=== PATIENT | male | born 1945 | race African-American/Black ===

== ENCOUNTER 2022-01-26 11:42 | Inpatient (IN) | payer MEDICARE, MEDICAID ==
[~2022-01-26] VITALS: Ht 172.7 cm; Wt 67.6 kg
[2022-01-26] MEDS ORDERED: METHYLPREDNISOLONE SOD SUCC 125 MG/2 ML VIAL IV STA (12:12)
[2022-01-26] MEDS ORDERED: ALBUTEROL (0.083%) 2.5MG/3ML NEB HHN STA (12:12)
[2022-01-26] MEDS ORDERED: IPRATROPIUM BROMIDE (0.02%) 0.5MG/2.5ML NEB HHN STA (12:12)
[2022-01-26 13:05] LABS: BASOPHILS % 0.7 % (0.0-2.0); EOSINOPHILS % 0.4 % (0.0-5.0); HEMATOCRIT. 30.9 % (42.0-52.0); HEMOGLOBIN. 9.5 g/dL (14.0-18.0); LYMPHOCYTES % 14.9 % (20.0-50.0); MEAN CORPUSCULAR HEMOGLOBIN 23.8 pg (28.0-32.0); MEAN CORPUSCULAR VOLUME 77.2 fL (80.0-94.0); MEAN PLATELET VOLUME 8.2 fl (7.4-10.4); MONOCYTES % 11.7 % (2.0-8.0); NEUTROPHILS % 72.3 % (40.0-76.0); PLATELET 181 x1000/uL (130-400); RED CELL DISTRIBUTION WIDTH 19.8 % (11.6-14.6)
[2022-01-26 13:10] LABS: CHLORIDE 105 mEq/L (98-107)
[2022-01-26] MEDS ORDERED: FUROSEMIDE 40MG/4ML VIAL IVP ONE (14:15)
[2022-01-26 18:20] VITALS: BP 128/71
[2022-01-26] MEDS ORDERED: ACETAMINOPHEN 325MG TABLET PO PRN (18:30)
[2022-01-26] MEDS ORDERED: ONDANSETRON HCL 4MG/2ML INJ IV PRN (18:30)
[2022-01-26] MEDS ORDERED: ENOXAPARIN 80MG/0.8ML SYR SUBCUT NR (18:31)
[2022-01-26] MEDS ORDERED: LACT10SO3 PO (19:27)
[2022-01-26] MEDS ORDERED: PANT40TA51 PO (19:27)
[2022-01-26] MEDS ORDERED: ATOR10TA69 PO (19:27)
[2022-01-26] MEDS ORDERED: FURO40TA5 PO (19:27)
[2022-01-26 20:00] VITALS: BP 136/73
[2022-01-26] MEDS: IPRATROPIUM/ALBUTEROL 0.5-3(2.5)MG/3ML NEB HHN SCH (20:25)
[2022-01-26 22:23] VITALS: BP 136/73
[2022-01-27 00:05] VITALS: BP 110/60
[2022-01-27] MEDS: IPRATROPIUM/ALBUTEROL 0.5-3(2.5)MG/3ML NEB HHN SCH ×6 (00:30→20:39)
[2022-01-27 04:00] VITALS: BP 109/59
[2022-01-27 06:08] LABS: HEMOGLOBIN. 9.2 g/dL (14.0-18.0); MEAN CORPUSCULAR HEMOGLOBIN 24.3 pg (28.0-32.0); MEAN CORPUSCULAR VOLUME 76.6 fL (80.0-94.0); MEAN PLATELET VOLUME 8.8 fl (7.4-10.4); PLATELET 184 x1000/uL (130-400); RED BLOOD CELL COUNT 3.78 mill/uL (4.7-6.1); RED CELL DISTRIBUTION WIDTH 19.5 % (11.6-14.6)
[2022-01-27 06:12] LABS: INR 1.4; PROTHROMBIN TIME 15.1 sec (9.6-11.0)
[2022-01-27 08:00] VITALS: BP 114/60
[2022-01-27] MEDS: ENOXAPARIN 80MG/0.8ML SYR SUBCUT SCH ×2 (09:13→20:37)
[2022-01-27] MEDS: FUROSEMIDE 40MG/4ML VIAL IVP SCH ×2 (09:13→17:00)
[2022-01-27 12:00] VITALS: BP 113/72
[2022-01-27 12:04] LABS: PLATELET ESTIMATE NORMAL
[2022-01-27] MEDS ORDERED: CEFTRIAXONE 1 G PREMIX 50 ML IV SCH (12:45)
[2022-01-27 14:29] LABS: BG BASE EXCESS -2.5 mmol/L (-2.0-2.0); BG CARBOXYHEMOGLOBIN 0.1 % (0.5-1.5); BG DEOXYHEMOGLOBIN 22.1 % (0.0-5.0); BG FRACTION INSPIRED OXYGEN 21; BG HCO3 ACT 24.2 mmol/L (22.0-26.0); BG METHEMOGLOBIN 0.3 % (0.0-1.5); BG OXYGEN SATURATION 77.8 % (92.0-98.5); BG OXYHEMOGLOBIN 77.5 % (94.0-97.0); BG PH 7.295 (7.350-7.450); BG PO2 45.1 mmHg (75.0-100.0); BG SAMPLE SITE RIGHT RADIAL; BG TOTAL HEMOGLOBIN 10.3 g/dL (12.0-18.0); BG VENT MODE ROOM AIR
[2022-01-27 16:00] VITALS: BP 94/52
[2022-01-27] MEDS: CEFTRIAXONE 1,000 MG in DEXTROSE 5% WATER 50 ML IV SCH (16:25)
[2022-01-27] MEDS: AZITHROMYCIN 250 MG in DEXT 5% WATER 250 ML IV SCH (16:25)
[2022-01-27 20:00] VITALS: BP 101/59
[2022-01-28] VITALS: BP 102/61
[2022-01-28] MEDS: IPRATROPIUM/ALBUTEROL 0.5-3(2.5)MG/3ML NEB HHN SCH ×7 (00:25→23:44)
[2022-01-28 04:00] VITALS: BP 95/56
[2022-01-28 06:27] LABS: HEMATOCRIT. 31.4 % (42.0-52.0); HEMOGLOBIN. 9.8 g/dL (14.0-18.0); MEAN CORPUSCULAR HEMOGLOBIN 24.2 pg (28.0-32.0); MEAN CORPUSCULAR VOLUME 77.2 fL (80.0-94.0); PLATELET 182 x1000/uL (130-400); RED BLOOD CELL COUNT 4.07 mill/uL (4.7-6.1); RED CELL DISTRIBUTION WIDTH 19.4 % (11.6-14.6)
[2022-01-28 08:00] VITALS: BP 114/66
[2022-01-28] MEDS: FUROSEMIDE 40MG/4ML VIAL IVP SCH ×2 (10:37→21:49)
[2022-01-28] MEDS: ENOXAPARIN 80MG/0.8ML SYR SUBCUT SCH ×2 (10:38→20:47)
[2022-01-28 12:00] VITALS: BP 111/58
[2022-01-28] MEDS: LACTULOSE 20G/30ML UDC PO SCH ×2 (14:37→20:47)
[2022-01-28] MEDS: CEFTRIAXONE 1,000 MG in DEXTROSE 5% WATER 50 ML IV SCH (14:37)
[2022-01-28] MEDS: AZITHROMYCIN 250 MG in DEXT 5% WATER 250 ML IV SCH (15:33)
[2022-01-28 16:00] VITALS: BP 118/60
[2022-01-28 20:00] VITALS: BP 134/68
[2022-01-28] MEDS: POTASSIUM CHLORIDE 20MEQ TABLET SR PO SCH (21:50)
[2022-01-28 21:56] LABS: PLATELET ESTIMATE NORMAL
[2022-01-28] MEDS ORDERED: FUROSEMIDE 100MG/10ML VIAL IVP SCH ×2 (22:00)
[2022-01-28 23:05] LABS: CLARITY URINE CLEAR (CLEAR); COLOR URINE YELLOW (YELLOW); KETONES URINE NEGATIVE (NEGATIVE); LEUKOCYTE ESTERASE URINE NEGATIVE (NEGATIVE); NITRITE URINE NEGATIVE (NEGATIVE); OCCULT BLOOD URINE NEGATIVE (NEGATIVE); PH URINE 5.5 (4.5-8.0); PROTEIN URINE 2+ (NEGATIVE); SPECIFIC GRAVITY URINE 1.014 (1.005-1.030); UROBILINOGEN URINE 0.2 E.U./dL (0.2-1.0)
[2022-01-29] VITALS: BP 115/72
[2022-01-29 04:00] VITALS: BP 121/70
[2022-01-29] MEDS: IPRATROPIUM/ALBUTEROL 0.5-3(2.5)MG/3ML NEB HHN SCH ×5 (04:01→20:18)
[2022-01-29] MEDS: LACTULOSE 20G/30ML UDC PO SCH ×3 (06:25→21:48)
[2022-01-29 07:20] LABS: HEMATOCRIT. 31.5 % (42.0-52.0); MEAN CORPUSCULAR HEMOGLOBIN 24.2 pg (28.0-32.0); MEAN CORPUSCULAR VOLUME 76.2 fL (80.0-94.0); MEAN PLATELET VOLUME 8.8 fl (7.4-10.4); PLATELET 193 x1000/uL (130-400); RED BLOOD CELL COUNT 4.14 mill/uL (4.7-6.1); RED CELL DISTRIBUTION WIDTH 19.5 % (11.6-14.6)
[2022-01-29] MEDS: FUROSEMIDE 40MG/4ML VIAL IVP SCH (07:49)
[2022-01-29 08:00] VITALS: BP 112/70
[2022-01-29] MEDS: POTASSIUM CHLORIDE 20MEQ TABLET SR PO SCH (10:05)
[2022-01-29] MEDS: ENOXAPARIN 80MG/0.8ML SYR SUBCUT SCH ×2 (10:05→21:48)
[2022-01-29 12:00] VITALS: BP 118/72
[2022-01-29] MEDS: CEFTRIAXONE 1,000 MG in DEXTROSE 5% WATER 50 ML IV SCH (14:51)
[2022-01-29] MEDS: AZITHROMYCIN 250 MG in DEXT 5% WATER 250 ML IV SCH (15:40)
[2022-01-29 16:00] VITALS: BP 119/72
[2022-01-29 20:00] VITALS: BP 124/74
[2022-01-29 21:30] LABS: PLATELET ESTIMATE NORMAL
[2022-01-29 23:13] LABS: CLARITY URINE CLEAR (CLEAR); COLOR URINE YELLOW (YELLOW); KETONES URINE NEGATIVE (NEGATIVE); LEUKOCYTE ESTERASE URINE 2+ (NEGATIVE); NITRITE URINE NEGATIVE (NEGATIVE); OCCULT BLOOD URINE 3+ (NEGATIVE); PH URINE 5.5 (4.5-8.0); PROTEIN URINE 1+ (NEGATIVE); SPECIFIC GRAVITY URINE 1.015 (1.005-1.030); UROBILINOGEN URINE 0.2 E.U./dL (0.2-1.0)
[2022-01-30] VITALS (7 sets, daily range): BP systolic 106–136; BP diastolic 65–75
[2022-01-30] MEDS: IPRATROPIUM/ALBUTEROL 0.5-3(2.5)MG/3ML NEB HHN SCH ×6 (04:26→21:20)
[2022-01-30] MEDS: LACTULOSE 20G/30ML UDC PO SCH ×3 (06:21→21:13)
[2022-01-30 08:22] LABS: HEMATOCRIT. 30.9 % (42.0-52.0); HEMOGLOBIN. 9.9 g/dL (14.0-18.0); MEAN CORPUSCULAR HEMOGLOBIN 24.1 pg (28.0-32.0); MEAN CORPUSCULAR VOLUME 75.3 fL (80.0-94.0); MEAN PLATELET VOLUME 9.1 fl (7.4-10.4); PLATELET 199 x1000/uL (130-400); RED CELL DISTRIBUTION WIDTH 19.1 % (11.6-14.6)
[2022-01-30] MEDS: ENOXAPARIN 80MG/0.8ML SYR SUBCUT SCH ×3 (08:50→21:13)
[2022-01-30] MEDS: AZITHROMYCIN 250 MG TABLET PO SCH (08:50)
[2022-01-30 09:34] LABS: CHLORIDE 108 mEq/L (98-107)
[2022-01-30 19:32] LABS: PLATELET ESTIMATE NORMAL
[2022-01-31] MEDS: IPRATROPIUM/ALBUTEROL 0.5-3(2.5)MG/3ML NEB HHN SCH ×6 (00:43→21:26)
[2022-01-31 04:00] VITALS: BP 120/63
[2022-01-31] MEDS: LACTULOSE 20G/30ML UDC PO SCH ×3 (04:57→21:42)
[2022-01-31 08:00] VITALS: BP 118/65
[2022-01-31 08:23] LABS: BASOPHILS % 0.1 % (0.0-2.0); EOSINOPHILS % 3.2 % (0.0-5.0); HEMATOCRIT. 32.6 % (42.0-52.0); HEMOGLOBIN. 10.2 g/dL (14.0-18.0); LYMPHOCYTES % 8.4 % (20.0-50.0); MEAN CORPUSCULAR HEMOGLOBIN 23.9 pg (28.0-32.0); MEAN CORPUSCULAR VOLUME 76.1 fL (80.0-94.0); MEAN PLATELET VOLUME 8.9 fl (7.4-10.4); MONOCYTES % 6.9 % (2.0-8.0); NEUTROPHILS % 81.4 % (40.0-76.0); PLATELET 195 x1000/uL (130-400); RED BLOOD CELL COUNT 4.28 mill/uL (4.7-6.1); RED CELL DISTRIBUTION WIDTH 19.4 % (11.6-14.6)
[2022-01-31] MEDS: ENOXAPARIN 80MG/0.8ML SYR SUBCUT SCH ×2 (08:45→20:51)
[2022-01-31 09:29] LABS: BG BASE EXCESS 2.5 mmol/L (-2.0-2.0); BG CARBOXYHEMOGLOBIN 0.6 % (0.5-1.5); BG DEOXYHEMOGLOBIN 13.6 % (0.0-5.0); BG HCO3 ACT 27.6 mmol/L (22.0-26.0); BG METHEMOGLOBIN 0.3 % (0.0-1.5); BG OXYGEN SATURATION 86.3 % (92.0-98.5); BG OXYHEMOGLOBIN 85.5 % (94.0-97.0); BG PH 7.406 (7.350-7.450); BG PO2 51.9 mmHg (75.0-100.0); BG SAMPLE SITE RIGHT RADIAL; BG VENT MODE ROOM AIR
[2022-01-31 12:00] VITALS: BP 104/63
[2022-01-31] MEDS: AZITHROMYCIN 250 MG TABLET PO SCH (15:28)
[2022-01-31 15:35] LABS: CHLORIDE 107 mEq/L (98-107)
[2022-01-31] MEDS ORDERED: AZIT250T12 PO (15:51)
[2022-01-31] MEDS ORDERED: IPRA3AMP9 HHN (15:51)
[2022-01-31] MEDS ORDERED: TOPUD PO (15:51)
[2022-01-31] MEDS ORDERED: APIX2.5T MT (15:52)
[2022-01-31 16:00] VITALS: BP 109/61
[2022-01-31 20:00] VITALS: BP 108/67
[2022-02-01] VITALS (7 sets, daily range): BP systolic 100–118; BP diastolic 57–73
[2022-02-01] MEDS: IPRATROPIUM/ALBUTEROL 0.5-3(2.5)MG/3ML NEB HHN SCH ×6 (01:35→20:48)
[2022-02-01] MEDS: LACTULOSE 20G/30ML UDC PO SCH ×3 (06:00→21:09)
[2022-02-01] MEDS: ENOXAPARIN 80MG/0.8ML SYR SUBCUT SCH ×2 (11:30→21:00)
[2022-02-02] VITALS: BP 102/63
[2022-02-02] MEDS: IPRATROPIUM/ALBUTEROL 0.5-3(2.5)MG/3ML NEB HHN SCH ×4 (01:00→11:12)
[2022-02-02 04:00] VITALS: BP 95/65
[2022-02-02] MEDS: LACTULOSE 20G/30ML UDC PO SCH ×2 (05:41→14:00)
[2022-02-02 07:24] LABS: BASOPHILS % 0.3 % (0.0-2.0); EOSINOPHILS % 7.9 % (0.0-5.0); HEMATOCRIT. 33.3 % (42.0-52.0); HEMOGLOBIN. 10.4 g/dL (14.0-18.0); LYMPHOCYTES % 9.7 % (20.0-50.0); MEAN CORPUSCULAR HEMOGLOBIN 23.7 pg (28.0-32.0); MEAN CORPUSCULAR VOLUME 75.7 fL (80.0-94.0); MEAN PLATELET VOLUME 8.9 fl (7.4-10.4); MONOCYTES % 10.3 % (2.0-8.0); NEUTROPHILS % 71.8 % (40.0-76.0); PLATELET 225 x1000/uL (130-400); RED CELL DISTRIBUTION WIDTH 19.5 % (11.6-14.6)
[2022-02-02 07:59] LABS: CHLORIDE 108 mEq/L (98-107)
[2022-02-02 08:00] VITALS: BP 116/65
[2022-02-02 10:17] LABS: BG BASE EXCESS 0.9 mmol/L (-2.0-2.0); BG FRACTION INSPIRED OXYGEN 28; BG HCO3 ACT 25.9 mmol/L (22.0-26.0); BG METHEMOGLOBIN 0.2 % (0.0-1.5); BG OXYHEMOGLOBIN 97.8 % (94.0-97.0); BG PCO2 42.8 mmHg (35.0-45.0); BG PH 7.399 (7.350-7.450); BG PO2 106.3 mmHg (75.0-100.0); BG SAMPLE SITE RIGHT RADIAL; BG TOTAL HEMOGLOBIN 11.4 g/dL (12.0-18.0); BG VENT MODE NASAL CANNULA
[2022-02-02] MEDS: ENOXAPARIN 80MG/0.8ML SYR SUBCUT SCH (10:53)
[2022-02-02 12:00] VITALS: BP 123/72
[2022-02-02 14:27] VITALS: BP 123/72
== END 2022-02-02 15:17 | DRG 291 ==
LOC: ER 11:59 → EDBEDREQ 12:17 → EDBEDREQTM 14:16 → EDBEDREQ 14:16 → ENRESERV 16:34 → 7WST 18:22
PROVIDERS: ADMIT Internal Medicine Pulmonary Disease; ATTEND Internal Medicine Pulmonary Disease
DX: I11.0 Hypertensive heart disease with heart failure (principal); I50.23 Acute on chronic systolic (congestive) heart failure; J96.01 Acute respiratory failure with hypoxia; J18.9 Pneumonia, unspecified organism; J44.0 Chronic obstructive pulmonary disease with (acute) lower respiratory infection; I48.20 Chronic atrial fibrillation, unspecified; E44.0 Moderate protein-calorie malnutrition; N17.9 Acute kidney failure, unspecified; Z20.822 Contact with and (suspected) exposure to COVID-19; K74.60 Unspecified cirrhosis of liver; D72.819 Decreased white blood cell count, unspecified; D64.9 Anemia, unspecified; R74.01 Elevation of levels of liver transaminase levels; Z86.73 Personal history of transient ischemic attack (TIA), and cerebral infarction without residual deficits; Z68.22 Body mass index [BMI] 22.0-22.9, adult
CPT/HCPCS: 36415; 36600; 71045; 71250; 80048; 80053; 81003; 82140; 82375; 82805; 83880; 84145; 85025; 87426; 93005; 93306; 94640; 99291; J0456; J0696; J1650; J1940; J2930; J7060